=== PATIENT | male | born 1985 | race Caucasian/White ===

== ENCOUNTER 2018-10-12 04:27 | Emergency (ER) | payer BC ==
[2018-10-12] MEDS ORDERED: Lactated Ringers 1,000 ML IV ONE (04:46)
[2018-10-12] MEDS ORDERED: Ondansetron 4 MG/2 ML SDV IVPUSH ONE (04:46)
--- NOTE | 2018-10-12 04:46 | EDM.PDOC ---
ED HPI GENERAL MEDICAL PROBLEM - General Chief Complaint: Gastrointestinal Problem Stated Complaint: VOMITING BLOOD Time Seen by Provider: 10/12/18 04:39 - History of Present Illness INITIAL COMMENTS - FREE TEXT/NARRATIVE: 33-year-old male presents emergency room vomiting blood. Patient started vomiting around midnight. He had several large episodes of vomiting. Then shortly before arrival he had some dry heaves and brought up only a small amount of mucousy material that had some right red flex of blood in it. The patient has had some chills with the vomiting. Otherwise seems to be doing okay he's not having a lot of abdominal discomfort except with vomiting. He has had no constipation or diarrhea no black or tarry stools. Patient's past medical history is negative for any heart or breathing troubles he does have sleep apnea no hypertension hyperlipidemia or diabetes. - Related Data Allergies Allergy/AdvReac Type Severity Reaction Status Date / Time No Known Allergies Allergy Verified 02/23/14 07:04 Home Meds: Home Meds Ondansetron [Zofran ODT] 4 mg PO Q4H PRN #10 tab.dis 10/12/18 [Rx] ED ROS GENERAL - Review of Systems Review Of Systems: See Below Constitutional: Reports: Chills (Only with vomiting) HEENT: Reports: No Symptoms Respiratory: Reports: No Symptoms Cardiovascular: Reports: No Symptoms GI/Abdominal: Reports: Nausea, Vomiting, Other (Flexible blood in with the most recent episode of vomiting). Denies: Black Stool, Bloody Stool, Constipation, Diarrhea : Reports: No Symptoms Musculoskeletal: Reports: No Symptoms Skin: Reports: No Symptoms Neurological: Reports: No Symptoms ED EXAM, GI/ABD - Physical Exam Exam: See Below Exam Limited By: No Limitations General Appearance: Alert, No Apparent Distress Head: Atraumatic, Normocephalic Neck: Normal Inspection, Supple, Non-Tender, Full Range of Motion Respiratory/Chest: No Respiratory Distress, Lungs Clear, Normal Breath Sounds Cardiovascular: Regular Rate, Rhythm, No Edema, No Murmur GI/Abdominal Exam: Normal Bowel Sounds, Soft, Non-Tender Back Exam: Normal Inspection. No: CVA Tenderness (L), CVA Tenderness (R) Neurological: Alert, Oriented, Normal Cognition Course - Vital Signs Last Recorded V/S: Last Vital Signs Temp 37.7 C 10/12/18 04:34 Pulse 99 10/12/18 04:34 Resp 18 10/12/18 04:34 BP 130/76 10/12/18 04:34 Pulse Ox 99 10/12/18 04:34 - Orders/Labs/Meds Labs: Laboratory Tests 10/12/18 10/12/18 Range/Units 04:56 04:56 WBC 4.53 (4.23-9.07) K/mm3 RBC 5.39 (4.63-6.08) M/mm3 Hgb 15.5 (13.7-17.5) gm/L Hct 46.6 (40.1-51.0) % MCV 86.5 (79.0-92.2) fl MCH 28.8 (25.7-32.2) pg MCHC 33.3 (32.2-35.5) g/dl RDW Std Deviation 43.0 (35.1-43.9) fL Plt Count 142 L (163-337) K/mm3 MPV 10.4 (9.4-12.3) fl Neutrophils % (Manual) 69 H (40-60) % Band Neutrophils % 7 (0-10) % Lymphocytes % (Manual) 12 L (20-40) % Atypical Lymphs % 0 % Monocytes % (Manual) 12 H (2-10) % Eosinophils % (Manual) 0 L (0.8-7.0) % Basophils % (Manual) 0 L (0.2-1.2) Platelet Estimate Decreased Plt Morphology Comment Normal RBC Morph Comment Normal Sodium 138 (136-145) mEq/L Potassium 3.5 (3.5-5.1) mEq/L Chloride 103 (98-107) mEq/L Carbon Dioxide 23 (21-32) mEq/L Anion Gap 15.5 H (5-15) BUN 20 H (7-18) mg/dL Creatinine 1.0 (0.7-1.3) mg/dL Est Cr Clr Drug Dosing 106.46 mL/min Estimated GFR (MDRD) > 60 (>60) mL/min BUN/Creatinine Ratio 20.0 H (14-18) Glucose 115 H (74-106) mg/dL Calcium 8.4 L (8.5-10.1) mg/dL Total Bilirubin 0.7 (0.2-1.0) mg/dL AST 35 (15-37) U/L ALT 61 (16-63) U/L Alkaline Phosphatase 77 (46-116) U/L Total Protein 7.1 (6.4-8.2) g/dl Albumin 3.8 (3.4-5.0) g/dl Globulin 3.3 gm/dL Albumin/Globulin Ratio 1.2 (1-2) Lipase 161 (73-393) U/L Meds: Medications Discontinued Medications Generic Name Dose Route Start Last Admin Trade Name Freq PRN Reason Stop Dose Admin Lactated Ringer's 1,000 mls @ 999 mls/hr 10/12/18 04:46 10/12/18 04:56 Ringers, Lactated IV 10/12/18 05:46 999 mls/hr .BOLUS ONE Administration Ondansetron HCl 4 mg 10/12/18 04:46 10/12/18 04:57 Zofran IVPUSH 10/12/18 04:47 4 mg ONETIME ONE Administration - Re-Assessments/Exams Free Text/Narrative Re-Assessment/Exam: 10/12/18 06:01 Patient doing better nausea is well controlled, pulse down into the mid 80s. Apparently the labs is having some mechanical issues and they are not anticipating the labs to be resulted around 6:30. Departure - Departure Time of Disposition: 06:03 Disposition: DC[facility] Clinical Impression: Gastroenteritis, Gayatri-Schmitt tear - Discharge Information Prescriptions: Ondansetron [Zofran ODT] 4 mg PO Q4H PRN #10 tab.dis PRN Reason: Nausea/Vomiting Referrals: Elisha Reed PA-C [Primary Care Provider] - Forms: ED Department Discharge Additional Instructions: Return to the emergency room with any questions problems worsening symptoms. Clear liquid diet for the next 24 hours then slowly advance as tolerated. Use the Zofran as needed for nausea and vomiting.
[2018-10-12] MEDS ORDERED: Ondansetron 4 MG Tab.DIS PO ONE (06:27)
== END 2018-10-12 06:48 | disposition home or self-care (01) ==
LOC: JD.ED 04:27
DX: K52.9 Noninfective gastroenteritis and colitis, unspecified (principal); K22.6 Gastro-esophageal laceration-hemorrhage syndrome
CPT/HCPCS: 36415; 80053; 83690; 85007; 85027; 96361; 96374; 99284; A9270; J2405; J7120; 99283